=== PATIENT | female | born 1950 | race Hispanic/Latino ===

== ENCOUNTER → 2023-09-20 | Outpatient (CLI) | payer OTHER | END | disposition home or self-care (01) | LOC: RAH 11:49 | PROVIDERS: ATTEND Nurse Practitioner Family | DX: Z12.31 Encounter for screening mammogram for malignant neoplasm of breast (principal) | CPT/HCPCS: 77067 ==

== ENCOUNTER → 2024-02-27 | Outpatient (CLI) | payer OTHER | END | disposition home or self-care (01) | LOC: RAH 12:34 | PROVIDERS: ATTEND Internal Medicine | DX: M85.89 Other specified disorders of bone density and structure, multiple sites (principal); M79.7 Fibromyalgia; M81.0 Age-related osteoporosis without current pathological fracture; Z78.0 Asymptomatic menopausal state | CPT/HCPCS: 77080 ==

== ENCOUNTER → 2024-09-23 | Outpatient (CLI) | payer OTHER, MEDICARE ==
--- NOTE | 2024-09-23 11:49 | HMCIMG ---
MAMMO SCREENING BILATERAL HISTORY: Screening mammogram. COMPARISON: 09/20/2023 TECHNIQUE: Bilateral screening mammogram with CAD was performed with craniocaudal and mediolateral oblique projections. FINDINGS: The breasts are heterogeneous dense, which may obscure small masses. Bilateral dystrophic calcifications are seen. There is no evidence of a dominant mass, or suspicious microcalcification. There is no evidence of nipple retraction or skin thickening. IMPRESSION: 1. Stable mammogram. Patient was entered into a reminder system with a target due date for their next mammogram. BI-RADS: CATEGORY 2: BENIGN FINDINGS Recommend monthly self breast exam as well as annual clinical examination. A negative x-ray should not delay biopsy if a dominant or clinically suspicious mass is present, since 8-10% of cancers are not identified by mammography. Dense breasts particularly, may obscure an underlying neoplasm. Some of these may be detected clinically and therefore, clinical examination is an essential part of breast evaluation.
== END | disposition home or self-care (01) ==
LOC: RAH 11:08
PROVIDERS: ATTEND Internal Medicine
DX: Z12.31 Encounter for screening mammogram for malignant neoplasm of breast (principal); R92.333 Mammographic heterogeneous density, bilateral breasts; R92.1 Mammographic calcification found on diagnostic imaging of breast
CPT/HCPCS: 77067

== ENCOUNTER 2024-11-19 05:58 | Day surgery (SDC) | payer OTHER, MEDICARE ==
[2024-11-19] VITALS (11 sets, daily range): BP systolic 102–129; BP diastolic 51–72; PULSE 60–73; RESP 14–16; TEMP 97–97.8
[~2024-11-19] VITALS: Ht 152.4 cm; Wt 79.8 kg
[~2024-11-19 05:58] MED LIST: ALBU18HF7 IH; AMLO-257 PO; CALC-866 PO; CETI-89 PO; CILO50TA2 PO; CYAN-52 PO; EMPA25TA PO; FENO150C4 PO; IRBE150T34 PO; LINA145C PO; METF-446 PO; MONT-39 PO; ROSU5TAB51 PO; UBID50TA3 PO; URSO300C4 PO
[2024-11-19] MEDS: 0.9%NACL 1000ML 1,000 ML IV ONE (06:38)
[2024-11-19] MEDS ORDERED: proPOFol 10 MG/ML 20ML VIAL IV ONE (07:11)
--- NOTE | 2024-11-19 08:22 | NUR ---
Full and complete Discharge Instructions given to Patient and Family both verbally and in writing. NurseManav gave DC instructions in [place]. All questions answered.Voiced understanding to GI procedure precautions and Follow Up. PIV removed with catheter tip intact. Denies c/o pain or discomfort. W/C with Daughter to POV to home.
== END 2024-11-19 08:23 | disposition home or self-care (01) ==
LOC: DAH 05:58 → SUH 05:58
PROVIDERS: ATTEND Internal Medicine
DX: R10.12 Left upper quadrant pain (principal); K29.50 Unspecified chronic gastritis without bleeding; K21.9 Gastro-esophageal reflux disease without esophagitis; D3A.010 Benign carcinoid tumor of the duodenum; C7A.8 Other malignant neuroendocrine tumors; K44.9 Diaphragmatic hernia without obstruction or gangrene; I10 Essential (primary) hypertension; E78.5 Hyperlipidemia, unspecified; F41.9 Anxiety disorder, unspecified; F32.A Depression, unspecified; J45.909 Unspecified asthma, uncomplicated; E11.9 Type 2 diabetes mellitus without complications; M19.90 Unspecified osteoarthritis, unspecified site; Z86.0100 Personal history of colon polyps, unspecified; Z90.710 Acquired absence of both cervix and uterus; Z98.891 History of uterine scar from previous surgery; Z88.0 Allergy status to penicillin; Z98.890 Other specified postprocedural states
CPT/HCPCS: 82948 ×2; 43236; 43239; 43251; J7030 ×2; J2704; A4620; A4215 ×2; A4223; A4657; A7002; A4222; A4221; A4663; A4606; J3490

== ENCOUNTER → 2024-11-22 | Outpatient (CLI) | payer OTHER, MEDICARE | END | disposition home or self-care (01) | LOC: RAH 12:41 | PROVIDERS: ATTEND Internal Medicine | DX: R22.1 Localized swelling, mass and lump, neck (principal) | CPT/HCPCS: 76536 ==